=== PATIENT | female | born 1955 | race African-American/Black ===

== ENCOUNTER 2021-02-05 19:31 | Inpatient (IN) ==
[2021-02-05] MEDS ORDERED: SODIUM CHLORIDE 0.9% 1,000 ML IV STA (20:31)
[2021-02-05] MEDS ORDERED: ONDANSETRON 4 MG/2 ML VIAL IV ONE (20:31)
[2021-02-05 20:59] LABS: Basophils % 0.6 % (0.0-0.8); Eosinophils # 0.2 10*3/uL (0.0-0.87); Eosinophils % 2.9 % (0.00-10.9); Hematocrit 42.8 VOL% (35.7-47.0); Hemoglobin 14.7 GM/DL (12.0-16.0); Lymphocytes # 0.9 10*3/uL (1.4-4.0); Lymphocytes % 16.7 % (21.3-54.2); Mean Corpuscular HGB Conc 34.3 GM/DL (32-36); Mean Corpuscular Volume 86.1 FL (87-102); Mean Platelet Volume 9.7 FL (9.6-12.0); Monocytes % 7.2 % (1.7-12.7); Neutrophils % 72.6 % (38.7-73.9); Platelet Count 290 T/CUMM (130-400); Red Blood Count 4.97 MC/CUMM (3.8-5.5); Red Cell Distribution Width 12.3 % (9.3-17.3); White Blood Count 5.4 T/CUMM (4-12)
[2021-02-05 21:07] LABS: Albumin 4.2 G/DL (3.4-5.0); Bilirubin,Total 0.6 MG/DL (0.2-1.0); Calcium 9.4 MG/DL (8.5-10.1); Osmolality,Calculated 271.8 MOS/KG (273-304); Potassium 3.3 MMOL/L (3.5-5.1); Total Protein 8.1 G/DL (6.4-8.2)
[2021-02-05] MEDS ORDERED: BENZOCAINE/BUTAMBEN/TETRACAINE SPRAY 20 GM CAN TOP ONE (23:21)
[2021-02-05] MEDS ORDERED: GLUCAGON 1 MG VIAL IM PRN (23:50)
[2021-02-05] MEDS ORDERED: DEXTROSE 50% 25 GM/50 ML VIAL IV PRN (23:50)
[2021-02-05] MEDS ORDERED: NICOTINE 21 MG/24 HR PATCH TRANSDERM PRN (23:50)
[2021-02-05] MEDS ORDERED: ONDANSETRON 4 MG/2 ML VIAL IV PRN (23:50)
[2021-02-05] MEDS ORDERED: MORPHINE 4 MG/1 ML VIAL IV PRN (23:50)
[2021-02-05] MEDS ORDERED: PROMETHAZINE 25 MG/1 ML VIAL IM PRN (23:50)
[2021-02-05] MEDS ORDERED: hydrALAZINE 20 MG/1 ML VIAL IV PRN (23:50)
[2021-02-06 05:18] LABS: Basophils % 0.1 % (0.0-0.8); Eosinophils # 0.2 10*3/uL (0.0-0.87); Eosinophils % 2.5 % (0.00-10.9); Hematocrit 37.6 VOL% (35.7-47.0); Hemoglobin 12.4 GM/DL (12.0-16.0); Immature Granulocytes % 0.1 %; Immature Granulocytes Absolute 0.01 #; Lymphocytes # 0.9 10*3/uL (1.4-4.0); Lymphocytes % 13.1 % (21.3-54.2); Mean Corpuscular Volume 87.9 FL (87-102); Mean Platelet Volume 9.8 FL (9.6-12.0); Monocytes % 7.1 % (1.7-12.7); Neutrophils % 77.1 % (38.7-73.9); Platelet Count 252 T/CUMM (130-400); Red Blood Count 4.28 MC/CUMM (3.8-5.5); Red Cell Distribution Width 12.2 % (9.3-17.3); White Blood Count 6.9 T/CUMM (4-12)
[2021-02-06 05:35] LABS: Calcium 8.4 MG/DL (8.5-10.1); Osmolality,Calculated 276.4 MOS/KG (273-304); Potassium 3.5 MMOL/L (3.5-5.1)
[2021-02-06] MEDS ORDERED: ceFAZolin 2,000 MG in PREMIX 1 EACH IV ONE (08:24)
[2021-02-06] MEDS ORDERED: ceFAZolin 2,000 MG/50 ML DUPLEX IV SCH (09:00)
[2021-02-06] MEDS: PANTOPRAZOLE 40 MG VIAL IV SCH (09:20)
[2021-02-06] MEDS: ENOXAPARIN 40 MG/0.4 ML SYRINGE SUBCUT SCH (09:23)
[2021-02-06] MEDS: DEXT 5% NACL 0.9% KCL 40 MEQ 40 MEQ/1,000 ML BAG IV SCH ×2 (11:05→17:32)
[2021-02-06] MEDS ORDERED: SUCCINYLCHOLINE 200 MG/10 ML VIAL ONE (12:19)
[2021-02-06] MEDS ORDERED: LIDOCAINE 2% 5 ML VIAL ONE (12:19)
[2021-02-06] MEDS ORDERED: MIDAZOLAM 2 MG/2 ML VIAL ONE (12:19)
[2021-02-06] MEDS ORDERED: propofoL 200 MG/20 ML VIAL IV ONE (12:19)
[2021-02-06] MEDS ORDERED: LACTATED RINGERS 1,000 ML IV ONE ×3 (12:19→14:52)
[2021-02-06] MEDS ORDERED: ROCURONIUM 50 MG/5 ML VIAL IV ONE ×2 (12:19→13:31)
[2021-02-06] MEDS ORDERED: PHENYLEPHRINE 1 MG/10 ML SYRINGE IV ONE ×4 (12:19→15:03)
[2021-02-06] MEDS ORDERED: fentaNYL 250 MCG/5 ML VIAL ONE (12:20)
[2021-02-06] MEDS ORDERED: LIDOCAINE 1%/EPI INJ 20 ML VIAL ONE (12:31)
[2021-02-06] MEDS ORDERED: BUPIVACAINE MPF 0.25% 30 ML VIAL ONE (12:31)
[2021-02-06] MEDS ORDERED: ceFAZolin 1,000 MG VIAL ONE (12:38)
[2021-02-06] MEDS ORDERED: SODIUM CHLORIDE 0.9% 1,000 ML IV ONE (12:57)
[2021-02-06] MEDS ORDERED: SEVOFLURANE 1 UNIT/15 MINUTE INH ONE (13:12)
[2021-02-06] MEDS ORDERED: ACETAMINOPHEN INJ 1,000 MG/100 ML VIAL IV ONE (13:31)
[2021-02-06] MEDS ORDERED: ALBUMIN 5% 12.5 GM/250 ML VIAL IV ONE (13:39)
[2021-02-06] MEDS ORDERED: ROPIVACAINE 0.5% 30 ML VIAL ONE (14:15)
[2021-02-06] MEDS ORDERED: SUGAMMADEX 200 MG/2 ML VIAL IV ONE (15:11)
[2021-02-06] MEDS ORDERED: fentaNYL 100 MCG/2 ML VIAL ONE (15:28)
[2021-02-06 15:50] LABS: Bilirubin,Urine Negative (Negative); Blood, Urine Small mg/dL (Negative); Glucose,Urine (UA) >=500 mg/dL (Negative); Ketones,Urine 80 mg/dL (Negative); Mucus,Urine Occasional /LPF (Occasional); Nitrite,Urine Negative (Negative); Protein,Urine 30 MG/DL; RBC,Urine <1 /HPF (0-4); Squamous Epithelial Cell,Urine Occasional /HPF (0-10); Urine Appearance CLEAR (Clear); Urine Color Yellow (Yellow); Urine Specific Gravity 1.015 (1.001-1.035); Urine Urobilinogen < 2.0 EU/DL (0.2-1.0)
[2021-02-06 16:52] LABS: Hematocrit 41.2 VOL% (35.7-47.0); Hemoglobin 13.5 GM/DL (12.0-16.0)
[2021-02-06] MEDS: DEXTROSE 5% LACTATED RINGERS 1,000 ML IV SCH (17:23)
[2021-02-06] MEDS: MORPHINE 4 MG/1 ML VIAL IV PRN ×2 (17:41→22:55)
[2021-02-06] MEDS: ceFAZolin 2,000 MG in PREMIX 1 EACH IV SCH (22:49)
[2021-02-07 00:39] LABS: Hemoglobin 12.4 GM/DL (12.0-16.0)
[2021-02-07] MEDS: DEXTROSE 5% LACTATED RINGERS 1,000 ML IV SCH ×4 (01:17→18:08)
[2021-02-07] MEDS: DEXT 5% NACL 0.9% KCL 40 MEQ 40 MEQ/1,000 ML BAG IV SCH ×2 (04:00→15:10)
[2021-02-07 05:10] LABS: Hematocrit 38.5 VOL% (35.7-47.0); Hemoglobin 12.8 GM/DL (12.0-16.0)
[2021-02-07 05:14] LABS: Basophils % 0.4 % (0.0-0.8); Hematocrit 38.6 VOL% (35.7-47.0); Hemoglobin 12.7 GM/DL (12.0-16.0); Immature Granulocytes % 0.2 %; Immature Granulocytes Absolute 0.01 #; Lymphocytes # 0.4 10*3/uL (1.4-4.0); Lymphocytes % 9.4 % (21.3-54.2); Mean Corpuscular HGB Conc 32.9 GM/DL (32-36); Mean Corpuscular Volume 89.1 FL (87-102); Mean Platelet Volume 9.8 FL (9.6-12.0); Monocytes % 9.7 % (1.7-12.7); Neutrophils % 80.3 % (38.7-73.9); Platelet Count 271 T/CUMM (130-400); Red Blood Count 4.33 MC/CUMM (3.8-5.5); Red Cell Distribution Width 12.4 % (9.3-17.3); White Blood Count 4.5 T/CUMM (4-12)
[2021-02-07 05:25] LABS: Calcium 8.2 MG/DL (8.5-10.1); Osmolality,Calculated 288.8 MOS/KG (273-304); Potassium 3.9 MMOL/L (3.5-5.1)
[2021-02-07] MEDS: ceFAZolin 2,000 MG in PREMIX 1 EACH IV SCH (05:35)
[2021-02-07] MEDS: MORPHINE 4 MG/1 ML VIAL IV PRN ×4 (05:39→21:52)
[2021-02-07 05:57] LABS: Band Neutrophils 7 % (0-10); Eosinophils 3 % (0-10); Hypochromasia Slight; Lymphocytes 7 % (20-55); Microcytosis Slight; Platelet Estimate Adequate; Segmented Neutrophils 75 % (50-85); Total Cells Counted 100
[2021-02-07] MEDS: ENOXAPARIN 40 MG/0.4 ML SYRINGE SUBCUT SCH (08:35)
[2021-02-07] MEDS: PANTOPRAZOLE 40 MG VIAL IV SCH (08:36)
[2021-02-08] MEDS: DEXTROSE 5% LACTATED RINGERS 1,000 ML IV SCH ×3 (01:30→17:54)
[2021-02-08] MEDS: DEXT 5% NACL 0.9% KCL 40 MEQ 40 MEQ/1,000 ML BAG IV SCH (07:49)
[2021-02-08] MEDS: ENOXAPARIN 40 MG/0.4 ML SYRINGE SUBCUT SCH (08:52)
[2021-02-08] MEDS: MORPHINE 4 MG/1 ML VIAL IV PRN ×3 (08:53→20:31)
[2021-02-08] MEDS: PANTOPRAZOLE 40 MG VIAL IV SCH (08:53)
[2021-02-09] MEDS: DEXTROSE 5% LACTATED RINGERS 1,000 ML IV SCH ×4 (01:40→23:11)
[2021-02-09] MEDS: MORPHINE 4 MG/1 ML VIAL IV PRN ×2 (05:24→09:31)
[2021-02-09 05:56] LABS: Risk Ratio 1.96; VLDL CHOLESTEROL 17.2 MG/DL
[2021-02-09 07:43] LABS: Basophils % 0.3 % (0.0-0.8); Eosinophils # 0.3 10*3/uL (0.0-0.87); Eosinophils % 7.6 % (0.00-10.9); Hematocrit 34.5 VOL% (35.7-47.0); Immature Granulocytes % 0.3 %; Immature Granulocytes Absolute 0.01 #; Lymphocytes # 0.8 10*3/uL (1.4-4.0); Lymphocytes % 21.9 % (21.3-54.2); Mean Corpuscular HGB Conc 31.9 GM/DL (32-36); Mean Platelet Volume 10.2 FL (9.6-12.0); Monocytes % 13.6 % (1.7-12.7); Neutrophils % 56.3 % (38.7-73.9); Platelet Count 276 T/CUMM (130-400); Red Blood Count 3.79 MC/CUMM (3.8-5.5); Red Cell Distribution Width 12.5 % (9.3-17.3); White Blood Count 3.8 T/CUMM (4-12)
[2021-02-09 07:51] LABS: Calcium 8.4 MG/DL (8.5-10.1); Osmolality,Calculated 297.1 MOS/KG (273-304); Potassium 3.2 MMOL/L (3.5-5.1)
[2021-02-09 08:05] LABS: Band Neutrophils 1 % (0-10); Eosinophils 6 % (0-10); Lymphocytes 24 % (20-55); Platelet Estimate Adequate; Segmented Neutrophils 55 % (50-85); Total Cells Counted 100
[2021-02-09 08:06] LABS: Hypochromasia 1+; Microcytosis 1+
[2021-02-09] MEDS: PANTOPRAZOLE 40 MG VIAL IV SCH (08:14)
[2021-02-09] MEDS: ENOXAPARIN 40 MG/0.4 ML SYRINGE SUBCUT SCH (08:14)
[2021-02-09] MEDS: POTASSIUM CHLORIDE RIDER 10 MEQ in PREMIX 1 EACH IV PRN ×6 (12:15→23:07)
[2021-02-09] MEDS ORDERED: POTASSIUM CHLORIDE 20 MEQ TABLET PO ONE (16:14)
[2021-02-09] MEDS: LACTULOSE 20 GM/30 ML UDCUP PO SCH (21:16)
[2021-02-10] MEDS: POTASSIUM CHLORIDE RIDER 10 MEQ in PREMIX 1 EACH IV PRN ×4 (00:17→18:08)
[2021-02-10 07:03] LABS: Basophils % 0.7 % (0.0-0.8); Eosinophils # 0.2 10*3/uL (0.0-0.87); Hematocrit 33.7 VOL% (35.7-47.0); Hemoglobin 11.2 GM/DL (12.0-16.0); Immature Granulocytes % 0.2 %; Immature Granulocytes Absolute 0.01 #; Lymphocytes # 0.9 10*3/uL (1.4-4.0); Lymphocytes % 21.2 % (21.3-54.2); Mean Corpuscular HGB Conc 33.2 GM/DL (32-36); Mean Corpuscular Volume 88.7 FL (87-102); Mean Platelet Volume 9.8 FL (9.6-12.0); Monocytes % 11.2 % (1.7-12.7); Neutrophils % 61.7 % (38.7-73.9); Platelet Count 282 T/CUMM (130-400); Red Cell Distribution Width 12.4 % (9.3-17.3); White Blood Count 4.4 T/CUMM (4-12)
[2021-02-10 07:17] LABS: Calcium 8.4 MG/DL (8.5-10.1); Osmolality,Calculated 293.3 MOS/KG (273-304); Potassium 3.3 MMOL/L (3.5-5.1)
[2021-02-10 07:42] LABS: Eosinophils 10 % (0-10); Hypochromasia Slight; Lymphocytes 25 % (20-55); Microcytosis Slight; Platelet Estimate Adequate; Segmented Neutrophils 59 % (50-85); Total Cells Counted 100
[2021-02-10] MEDS ORDERED: POTASSIUM CHLORIDE 10 MEQ TABLET PO SCH (09:00)
[2021-02-10] MEDS: amLODIPine 5 MG TABLET PO SCH (09:17)
[2021-02-10] MEDS: PANTOPRAZOLE 40 MG VIAL IV SCH (09:17)
[2021-02-10] MEDS: ENOXAPARIN 40 MG/0.4 ML SYRINGE SUBCUT SCH (09:17)
[2021-02-10] MEDS: LACTULOSE 20 GM/30 ML UDCUP PO SCH ×2 (09:17→21:20)
[2021-02-10] MEDS: DEXTROSE 5% LACTATED RINGERS 1,000 ML IV SCH ×2 (14:00)
[2021-02-10] MEDS ORDERED: POTASSIUM CHLORIDE 20 MEQ TABLET PO ONE (15:50)
[2021-02-10] MEDS: METOCLOPRAMIDE 10 MG/2 ML VIAL IV SCH (18:46)
[2021-02-10] MEDS: ROSUVASTATIN 20 MG TABLET PO SCH (21:20)
[2021-02-11] MEDS: METOCLOPRAMIDE 10 MG/2 ML VIAL IV SCH ×4 (00:08→17:33)
[2021-02-11 05:25] LABS: Basophils % 0.3 % (0.0-0.8); Eosinophils # 0.2 10*3/uL (0.0-0.87); Hematocrit 36.5 VOL% (35.7-47.0); Hemoglobin 11.8 GM/DL (12.0-16.0); Immature Granulocytes Absolute 0.07 #; Lymphocytes # 0.9 10*3/uL (1.4-4.0); Lymphocytes % 13.2 % (21.3-54.2); Mean Corpuscular HGB Conc 32.3 GM/DL (32-36); Mean Corpuscular Volume 90.1 FL (87-102); Mean Platelet Volume 9.8 FL (9.6-12.0); Monocytes % 7.8 % (1.7-12.7); Neutrophils % 74.7 % (38.7-73.9); Platelet Count 347 T/CUMM (130-400); Red Blood Count 4.05 MC/CUMM (3.8-5.5); Red Cell Distribution Width 12.3 % (9.3-17.3); White Blood Count 6.9 T/CUMM (4-12)
[2021-02-11 05:37] LABS: Calcium 8.4 MG/DL (8.5-10.1); Osmolality,Calculated 295.3 MOS/KG (273-304); Potassium 3.2 MMOL/L (3.5-5.1)
[2021-02-11] MEDS: DEXTROSE 5% LACTATED RINGERS 1,000 ML IV SCH ×2 (05:57→08:14)
[2021-02-11 06:00] LABS: Eosinophils 5 % (0-10); Hypochromasia 1+; Lymphocytes 17 % (20-55); Microcytosis 1+; Platelet Estimate Adequate; Segmented Neutrophils 69 % (50-85); Total Cells Counted 100
[2021-02-11] MEDS ORDERED: POTASSIUM CHLORIDE 20 MEQ TABLET PO ONE (07:17)
[2021-02-11] MEDS ORDERED: GLYCERIN ADULT SUPP RECTAL ONE (07:45)
[2021-02-11] MEDS: PANTOPRAZOLE 40 MG VIAL IV SCH (10:00)
[2021-02-11] MEDS: amLODIPine 5 MG TABLET PO SCH (10:00)
[2021-02-11] MEDS: ENOXAPARIN 40 MG/0.4 ML SYRINGE SUBCUT SCH (10:00)
[2021-02-11] MEDS: ROSUVASTATIN 20 MG TABLET PO SCH (10:01)
[2021-02-11] MEDS: LACTULOSE 20 GM/30 ML UDCUP PO SCH ×3 (10:01→21:45)
[2021-02-11] MEDS: DOCUSATE SODIUM 100 MG CAPSULE PO SCH ×2 (11:35→21:21)
[2021-02-11] MEDS: POTASSIUM CHLORIDE 20 MEQ TABLET PO SCH ×2 (14:47→21:21)
[2021-02-11] MEDS: POLYETHYLENE GLYCOL POWDER 17 GM PACK PO SCH ×3 (14:48→21:45)
[2021-02-12] MEDS: METOCLOPRAMIDE 10 MG/2 ML VIAL IV SCH ×3 (00:28→11:59)
[2021-02-12] MEDS: POLYETHYLENE GLYCOL POWDER 17 GM PACK PO SCH ×4 (02:59→20:50)
[2021-02-12 05:46] LABS: Basophils % 0.4 % (0.0-0.8); Eosinophils # 0.1 10*3/uL (0.0-0.87); Eosinophils % 1.6 % (0.00-10.9); Hematocrit 41.8 VOL% (35.7-47.0); Hemoglobin 13.6 GM/DL (12.0-16.0); Immature Granulocytes % 0.8 %; Immature Granulocytes Absolute 0.06 #; Lymphocytes # 1.4 10*3/uL (1.4-4.0); Lymphocytes % 19.8 % (21.3-54.2); Mean Corpuscular HGB Conc 32.5 GM/DL (32-36); Mean Corpuscular Volume 88.7 FL (87-102); Mean Platelet Volume 9.6 FL (9.6-12.0); Monocytes % 13.7 % (1.7-12.7); Neutrophils % 63.7 % (38.7-73.9); Platelet Count 508 T/CUMM (130-400); Red Blood Count 4.71 MC/CUMM (3.8-5.5); Red Cell Distribution Width 12.4 % (9.3-17.3); White Blood Count 7.1 T/CUMM (4-12)
[2021-02-12] MEDS: PANTOPRAZOLE 40 MG TABLET PO SCH (05:58)
[2021-02-12 06:13] LABS: Band Neutrophils 3 % (0-10); Eosinophils 2 % (0-10); Hypochromasia 1+; Lymphocytes 23 % (20-55); Microcytosis 1+; Platelet Estimate Increased; Segmented Neutrophils 65 % (50-85); Total Cells Counted 100
[2021-02-12 06:25] LABS: Calcium 8.9 MG/DL (8.5-10.1); Osmolality,Calculated 287.8 MOS/KG (273-304); Potassium 3.5 MMOL/L (3.5-5.1)
[2021-02-12] MEDS ORDERED: MAGNESIUM SULF RIDER 4 GM/100 ML PREMIX IV PRN (07:38)
[2021-02-12] MEDS ORDERED: MAGNESIUM SULF RIDER 2 GM/50 ML PREMIX IV PRN (07:38)
[2021-02-12] MEDS: ROSUVASTATIN 20 MG TABLET PO SCH (08:27)
[2021-02-12] MEDS: ENOXAPARIN 40 MG/0.4 ML SYRINGE SUBCUT SCH (08:27)
[2021-02-12] MEDS: DOCUSATE SODIUM 100 MG CAPSULE PO SCH ×2 (08:28→20:50)
[2021-02-12] MEDS: POTASSIUM CHLORIDE 20 MEQ TABLET PO SCH ×3 (08:28→20:50)
[2021-02-12] MEDS: LACTULOSE 20 GM/30 ML UDCUP PO SCH ×2 (08:28→20:47)
[2021-02-12] MEDS: LINACLOTIDE 145 MCG CAPSULE PO SCH (08:28)
[2021-02-12] MEDS: amLODIPine 10 MG TABLET PO SCH (10:16)
[2021-02-12] MEDS: MORPHINE 4 MG/1 ML VIAL IV PRN (15:03)
[2021-02-13] MEDS: PANTOPRAZOLE 40 MG TABLET PO SCH (05:38)
[2021-02-13 06:30] LABS: Basophils % 0.4 % (0.0-0.8); Eosinophils # 0.2 10*3/uL (0.0-0.87); Eosinophils % 2.1 % (0.00-10.9); Hematocrit 43.1 VOL% (35.7-47.0); Hemoglobin 13.9 GM/DL (12.0-16.0); Immature Granulocytes Absolute 0.07 #; Lymphocytes # 1.4 10*3/uL (1.4-4.0); Mean Corpuscular HGB Conc 32.3 GM/DL (32-36); Mean Corpuscular Volume 89.8 FL (87-102); Mean Platelet Volume 9.6 FL (9.6-12.0); Neutrophils % 64.5 % (38.7-73.9); Platelet Count 518 T/CUMM (130-400); Red Cell Distribution Width 12.4 % (9.3-17.3); White Blood Count 7.2 T/CUMM (4-12)
[2021-02-13 06:44] LABS: Calcium 9.1 MG/DL (8.5-10.1); Osmolality,Calculated 286.3 MOS/KG (273-304); Potassium 3.6 MMOL/L (3.5-5.1)
[2021-02-13] MEDS ORDERED: SODIUM CHLORIDE 0.9% 500 ML IV ONE (08:17)
[2021-02-13 08:36] LABS: Atypical Lymphocytes Few; Band Neutrophils 8 % (0-10); Eosinophils 2 % (0-10); Lymphocytes 21 % (20-55); Platelet Estimate Increased; Segmented Neutrophils 59 % (50-85); Total Cells Counted 100
[2021-02-13] MEDS: LINACLOTIDE 145 MCG CAPSULE PO SCH (09:23)
[2021-02-13] MEDS: LACTULOSE 20 GM/30 ML UDCUP PO SCH (09:24)
[2021-02-13] MEDS: POLYETHYLENE GLYCOL POWDER 17 GM PACK PO SCH (09:25)
[2021-02-13] MEDS: amLODIPine 10 MG TABLET PO SCH (09:25)
[2021-02-13] MEDS: DOCUSATE SODIUM 100 MG CAPSULE PO SCH ×2 (09:25→20:26)
[2021-02-13] MEDS: ROSUVASTATIN 20 MG TABLET PO SCH (09:25)
[2021-02-13] MEDS: POTASSIUM CHLORIDE 20 MEQ TABLET PO SCH ×3 (09:25→20:26)
[2021-02-13] MEDS: ENOXAPARIN 40 MG/0.4 ML SYRINGE SUBCUT SCH (09:25)
[2021-02-13] MEDS ORDERED: ACETAMINOPHEN 325 MG TABLET PO PRN (14:51)
[2021-02-14] MEDS: PANTOPRAZOLE 40 MG TABLET PO SCH (05:50)
[2021-02-14 06:54] LABS: Basophils % 0.4 % (0.0-0.8); Eosinophils # 0.2 10*3/uL (0.0-0.87); Eosinophils % 2.1 % (0.00-10.9); Hematocrit 38.7 VOL% (35.7-47.0); Hemoglobin 13.2 GM/DL (12.0-16.0); Immature Granulocytes % 1.2 %; Immature Granulocytes Absolute 0.11 #; Lymphocytes # 1.5 10*3/uL (1.4-4.0); Lymphocytes % 16.1 % (21.3-54.2); Mean Corpuscular HGB Conc 34.1 GM/DL (32-36); Mean Corpuscular Volume 86.8 FL (87-102); Mean Platelet Volume 9.8 FL (9.6-12.0); Monocytes % 8.7 % (1.7-12.7); Neutrophils % 71.5 % (38.7-73.9); Platelet Count 467 T/CUMM (130-400); Red Blood Count 4.46 MC/CUMM (3.8-5.5); Red Cell Distribution Width 12.6 % (9.3-17.3); White Blood Count 9.3 T/CUMM (4-12)
[2021-02-14 07:12] LABS: Calcium 8.1 MG/DL (8.5-10.1); Osmolality,Calculated 285.1 MOS/KG (273-304); Potassium 3.8 MMOL/L (3.5-5.1)
[2021-02-14 07:50] LABS: Calcium 7.8 MG/DL (8.5-10.1); Osmolality,Calculated 284.1 MOS/KG (273-304); Potassium 4.3 MMOL/L (3.5-5.1)
[2021-02-14] MEDS ORDERED: SODIUM CHLORIDE 0.9% 250 ML IV ONE (08:52)
[2021-02-14] MEDS ORDERED: SODIUM CHLORIDE 0.9% 500 ML IV ONE ×3 (08:54→10:22)
[2021-02-14] MEDS: amLODIPine 10 MG TABLET PO SCH (09:15)
[2021-02-14] MEDS: ENOXAPARIN 40 MG/0.4 ML SYRINGE SUBCUT SCH (09:15)
[2021-02-14] MEDS: ROSUVASTATIN 20 MG TABLET PO SCH (09:15)
[2021-02-14] MEDS: POTASSIUM CHLORIDE 20 MEQ TABLET PO SCH ×2 (09:15→14:27)
[2021-02-14] MEDS: DOCUSATE SODIUM 100 MG CAPSULE PO SCH (11:00)
[2021-02-14 12:12] VITALS: BP 151/95
[2021-02-14] MEDS ORDERED: carvediloL 3.125 MG TABLET PO ONE (14:08)
== END 2021-02-14 14:31 | disposition home health service (06) | DRG 330 ==
LOC: N.ED 19:31 → SUATTDRO 23:50 → N.EDINP 23:50 → N.5E 02-06 00:07
PROVIDERS: ADMIT Internal Medicine; ATTEND Phlebology